=== PATIENT | female | born 1965 | race African-American/Black ===

== ENCOUNTER 2022-10-01 11:44 | Emergency (ER) | payer BC, SELFPAY ==
[2022-10-01] MEDS ORDERED: diphenhydrAMINE 50 MG/ML VIAL ONE (12:36)
[2022-10-01] MEDS ORDERED: Metoclopramide HCl 10 MG/2 ML VIAL ONE (12:37)
[2022-10-01 12:52] LABS: #Monocytes 0.5 10x3/uL (0.0-1.1); #Neutrophils 3.1 10x3/uL (1.5-8.4); %Basophils 0.4 % (0.0-2.0); %Eosinophils 0.6 % (0.0-6.0); %Lymphocytes 31.6 % (18.0-47.0); %Monocytes 8.5 % (0.0-10.0); %Neutrophils 58.9 % (40.0-75.0); Hemoglobin 13.9 g/dL (12.0-15.5); Mean Corpuscular HGB CONC 33.8 g/dL (32.0-36.0); Mean Corpuscular Hemoglobin 27.6 pg (27.0-33.0); Mean Corpuscular Volume 81.7 fl (81.6-98.3); Mean Platelet Volume 9.7 fl (7.4-10.4); Platelet Count 247 10x3/uL (150-450); Red Blood Cell (RBC) Count 5.03 10x6/uL (3.90-5.03); White Blood Cell (WBC) Count 5.3 10x3/uL (3.5-10.5)
[2022-10-01 13:07] LABS: ALT (SGPT) 26 U/L (8-55); AST (SGOT) 23 U/L (5-34); Albumin 4.3 g/dL (3.5-5.0); Alkaline Phosphatase 61 U/L (40-110); Anion Gap 15 mmol/L (10-20); BUN (Urea Nitrogen) 17 mg/dL (9.8-20.1); Bilirubin, Total 0.4 mg/dL (0.2-1.2); Calc. Creatinine Clearance 0 mL/min (70-130); Calcium 9.6 mg/dL (7.8-10.44); Carbon Dioxide 24 mmol/L (22-29); Chloride 100 mmol/L (98-107); Estimated GFR 63; Globulin 3.7 g/dL (2.4-3.5); Glucose 99 mg/dL (70-105); Potassium 3.6 mmol/L (3.5-5.1); Sodium 135 mmol/L (136-145)
[2022-10-01] MEDS ORDERED: Ketorolac Tromethamine 30 MG/ML VIAL ONE (14:51)
== END 2022-10-01 15:30 | disposition home or self-care (01) ==
LOC: CSHERS 11:44
DX: R51.9 Headache, unspecified (principal); I10 Essential (primary) hypertension; K21.9 Gastro-esophageal reflux disease without esophagitis; E11.9 Type 2 diabetes mellitus without complications
CPT/HCPCS: 70450; 80053; 85025; 96361; 96365; 96375; J1200; J1885; J2765

== ENCOUNTER 2023-11-25 15:02 | Emergency (ER) | payer SELFPAY ==
[2023-11-25] MEDS ORDERED: Aspirin Chewable 81 MG TAB ONE (15:47)
[2023-11-25] MEDS ORDERED: Ondansetron PF 4 MG/2 ML Vial ONE (15:47)
[2023-11-25] MEDS ORDERED: Acetaminophen 325 MG TAB ONE (15:47)
[2023-11-25 16:22] LABS: #Basophils 0.02 10x3/uL (0.0-0.2); #Neutrophils 2.67 10x3/uL (1.5-8.4); %Basophils 0.4 % (0.0-2.0); %Eosinophils 1.9 % (0.0-6.0); %Lymphocytes 36.2 % (18.0-47.0); %Monocytes 9.6 % (0.0-10.0); %Neutrophils 51.3 % (40.0-75.0); Hematocrit 38.1 % (34.9-44.5); Hemoglobin 13.1 g/dL (12.0-15.5); Mean Corpuscular HGB CONC 34.4 g/dL (32.0-36.0); Mean Corpuscular Hemoglobin 28.9 pg (27.0-33.0); Mean Corpuscular Volume 83.9 fL (81.6-98.3); Mean Platelet Volume 10.3 fL (7.4-10.4); Platelet Count 216 10x3/uL (150-450); RBC Distribution Width 13.2 % (11.5-14.5); Red Blood Cell (RBC) Count 4.54 10x6/uL (3.90-5.03); White Blood Cell (WBC) Count 5.2 10x3/uL (3.5-10.5)
[2023-11-25 16:36] LABS: ALT (SGPT) 28 U/L (8-55); AST (SGOT) 28 U/L (5-34); Albumin 4.1 g/dL (3.5-5.0); Alkaline Phosphatase 68 U/L (40-110); Anion Gap 15 mmol/L (10-20); BUN (Urea Nitrogen) 14 mg/dL (9.8-20.1); Bilirubin, Total 0.3 mg/dL (0.2-1.2); Calc. Creatinine Clearance 0 mL/min (70-130); Calcium 9.6 mg/dL (7.8-10.44); Carbon Dioxide 21 mmol/L (22-29); Chloride 106 mmol/L (98-107); Estimated GFR 80; Globulin 3.6 g/dL (2.4-3.5); Glucose 110 mg/dL (70-105); Potassium 3.9 mmol/L (3.5-5.1); Protein, Total 7.7 g/dL (6.0-8.3); Sodium 138 mmol/L (136-145)
[2023-11-25 16:42] LABS: Troponin I 0.028 ng/mL (< 0.028)
[2023-11-25 17:30] LABS: Bilirubin Neg (Negative); Blood, Urine Negative (Negative); Clarity Clear (Clear); Glucose, Urine (Dipstick) Normal (Negative); Ketone, Urine Negative (Negative); Leukocyte 25 (Negative); Nitrite Negative (Negative); Protein, Urine (Dipstick) 30 mg/dl (Neg-Trace); Urobilinogen Normal mg/dL (Less than 2)
[2023-11-25 17:48] LABS: Bacteria/HPF Rare-Few HPF (None Seen); CAUTI Indications for Culture Pelvic or flank pain; RBC/HPF 0-3 HPF (0-3); Squamous Epithelial 0-3 HPF (0-3); WBC/HPF 0-3 HPF (0-3)
[2023-11-25 17:49] LABS: Urine Culture Reflex No No
== END 2023-11-25 17:57 | disposition home or self-care (01) ==
LOC: CSHERS 15:02
DX: N39.0 Urinary tract infection, site not specified (principal); R53.1 Weakness; I10 Essential (primary) hypertension; E11.9 Type 2 diabetes mellitus without complications
CPT/HCPCS: 80053; 81001; 84484; 85025; 93005; 96374; J2405

== ENCOUNTER 2023-12-27 09:06 | Emergency (ER) | payer BC ==
[2023-12-27] MEDS ORDERED: Metoclopramide HCl 10 MG (2 mL) VIAL ONE (09:44)
[2023-12-27] MEDS ORDERED: Insulin Regular 300 UNITS/3 ML VIAL IVP SCH (10:15)
[2023-12-27 10:22] LABS: #Basophils 0.02 10x3/uL (0.0-0.2); #Eosinphils 0.03 10x3/uL (0.0-0.5); #Monocytes 0.29 10x3/uL (0.0-1.1); #Neutrophils 2.01 10x3/uL (1.5-8.4); %Basophils 0.5 % (0.0-2.0); %Eosinophils 0.7 % (0.0-6.0); %Lymphocytes 41.6 % (18.0-47.0); %Monocytes 7.2 % (0.0-10.0); %Neutrophils 49.8 % (40.0-75.0); Hematocrit 34.4 % (34.9-44.5); Mean Corpuscular HGB CONC 34.9 g/dL (32.0-36.0); Mean Corpuscular Hemoglobin 29.1 pg (27.0-33.0); Mean Corpuscular Volume 83.3 fL (81.6-98.3); Mean Platelet Volume 10.9 fL (7.4-10.4); Platelet Count 227 10x3/uL (150-450); RBC Distribution Width 12.3 % (11.5-14.5); Red Blood Cell (RBC) Count 4.13 10x6/uL (3.90-5.03)
[2023-12-27 10:46] LABS: ALT (SGPT) 31 U/L (8-55); AST (SGOT) 26 U/L (5-34); Albumin 4.3 g/dL (3.5-5.0); Alkaline Phosphatase 75 U/L (40-110); Anion Gap 15 mmol/L (10-20); BUN (Urea Nitrogen) 24 mg/dL (9.8-20.1); Bilirubin, Total 0.3 mg/dL (0.2-1.2); Calc. Creatinine Clearance 0 mL/min (70-130); Calcium 9.7 mg/dL (7.8-10.44); Carbon Dioxide 19 mmol/L (22-29); Chloride 101 mmol/L (98-107); Estimated GFR 48; Globulin 3.4 g/dL (2.4-3.5); Potassium 4.4 mmol/L (3.5-5.1); Protein, Total 7.7 g/dL (6.0-8.3); Sodium 131 mmol/L (136-145)
[2023-12-27 10:53] LABS: Critical Call Chemistry NUR.DG3@1053; Glucose 423 mg/dL (70-105)
== END 2023-12-27 12:16 | disposition home or self-care (01) ==
LOC: CSHERS 09:06
DX: E11.65 Type 2 diabetes mellitus with hyperglycemia (principal); K21.9 Gastro-esophageal reflux disease without esophagitis; Z79.899 Other long term (current) drug therapy; Z79.4 Long term (current) use of insulin
CPT/HCPCS: 36416; 80053; 82010; 85025; 96374; J1815; J2765